=== PATIENT | female | born 1970 | race Caucasian/White ===

== ENCOUNTER 2018-07-31 05:04 | Day surgery (SDC) | payer BC ==
[2018-07-30 08:39] VITALS: BMI 34.9
--- NOTE | 2018-07-31 10:12 | HP ---
History & Physical Update - History History: No Change - Physical Physical: No Change - Assessment Assessment: No Change - Plan Plan: No Change Currently as noted:: 47yo female with Menorrhagia, obesity admitted for D&C and endom ablation
[2018-07-31] MEDS ORDERED: LIDOCAINE HCL/PF 2% SDV 5ML VIAL ONE (10:33)
[2018-07-31] MEDS ORDERED: PROPOFOL 20 ML ONE ×2 (10:34)
[2018-07-31] MEDS ORDERED: MIDAZOLAM HCL 2 MG/2 ML SINGLE DOSE VIAL ONE (10:34)
[2018-07-31] MEDS ORDERED: ceFAZolin SODIUM 1 GM VIAL IVPB ONE (10:58)
[2018-07-31] MEDS ORDERED: KETOROLAC TROMETHAMINE 30 MG/1 ML VIAL ONE (11:10)
[2018-07-31] MEDS ORDERED: DEXAMETHASONE SOD PHOSPHATE 4 MG/1 ML VIAL ONE (11:10)
[2018-07-31] MEDS ORDERED: ceFAZolin SODIUM 1 GM VIAL ONE ×2 (11:11)
[2018-07-31] MEDS ORDERED: ONDANSETRON 4 MG/2 ML VIAL IVPUSH PRN (11:40)
[2018-07-31] MEDS ORDERED: oxyCODONE HCL 5 MG TABLET PO PRN (11:40)
[2018-07-31] MEDS ORDERED: PROMETHAZINE HCL 25 MG/1 ML VIAL IVPB PRN (11:40)
--- NOTE | 2018-07-31 11:42 | OP ---
Operative Note - Note: Operative Date: 07/31/18 Pre-Operative Diagnosis: Menorrhagia, obesity Operation: Hysteroscopy, D&C, endometrial ablation Findings: Slightly enlarged uterine cavity, sounded to 8cm. No lesions Post-Operative Diagnosis: Same as Pre-op Surgeon: Nish Boyd Anesthesiologist/PATTERNMAKER ALL AROUND: Blayne Merida Anesthesia: General Specimens Removed: Endometrial curettings Estimated Blood Loss (mls): 10 Blood Volume Replaced (mls): 0 Fluid Volume Replaced (mls): 1,000 Operative Report Dictated: Yes
--- NOTE | 2018-07-31 11:45 | DS ---
Physical Exam-MEDIA SERVICES COORDINATOR Vital Signs: Vital Signs Temperature 97.9 F 07/31/18 09:13 Pulse Rate 82 07/31/18 09:13 Respiratory Rate 18 07/31/18 09:13 Blood Pressure 110/86 07/31/18 09:13 O2 Sat by Pulse Oximetry (%) 99 07/31/18 09:12 Constitutional: Yes: Well Nourished, No Distress, Calm Eyes: Yes: WNL, Conjunctiva Clear HENT: Yes: WNL, Atraumatic, Normocephalic Neck: Yes: WNL, Supple, Trachea Midline Cardiovascular: Yes: WNL, Regular Rate and Rhythm Respiratory: Yes: WNL, Regular, CTA Bilaterally Gastrointestinal: Yes: Normal Bowel Sounds, Soft, Abdomen, Obese ...Rectal Exam: Yes: Deferred Renal/: Yes: WNL Pelvis: Yes: WNL External Genitalia: Yes: Normal Internal Exam Deferred: Yes Vaginal Exam: Yes: Bleeding (mild) Musculoskeletal: Yes: WNL Extremities: Yes: WNL Edema: No Integumentary: Yes: WNL Neurological: Yes: WNL, Alert, Oriented ...Motor Strength: WNL Psychiatric: Yes: WNL, Alert, Oriented Discharge Summary Reason For Visit: EXCESSIVE AND FREQUENT MENSTRUATION WITH IRREGULAR Menorrhagia, obesity Procedures: Principal: Hysteroscopy w/endometrial ablation Other Procedures: D&C Hospital Course: Normal recovery Condition: Good - Instructions Diet, Activity, Other Instructions: Dr. Nish Boyd Leather Belt Loop Cutter discharge instructions Physical activity Resume your normal everyday activity as tolerated no heavy lifting or exercise until seen by your surgeon. You may walk unlimited steffen of and climb stairs. You may resume driving the car when you feel safe and comfortable behind the wheel. No sexual activity as instructed by Dr. Boyd. Wound care If you have a bandage, leave it on, and keep dry for 48-72 hours. After that time discard the outer bandage. If they are tapes on the skin under the out of bandage leave them in place. They will peel off in the next 7 to 10 days. Do Not Peel them off. You may shower the day after surgery. If there are tapes present on the skin, you may shower over them. Diet There are no dietary restrictions. Eat healthy, high-fiber foods. Drink 6 to 8 glasses of liquid each day. This will assist in keeping your bowels are regular. Pain management You may take Tylenol or acetaminophen or Ibuprofen (for example, Motrin, Advil etc.) from my pain prescription medication is ordered should be taken as prescribed for moderate to severe pain. Call Dr. Boyd for any of the following: Severe pain not relieved by medication Fever of 101 or higher Excessive bleeding or drainage on dressing Inability to urinate Call the office at [phone] for an appointment in seven days. Referrals: Nish Boyd MD [Staff Physician] - Disposition: HOME - Home Medications Comprehensive Discharge Medication List: Ambulatory Orders Cetirizine HCl [Zyrtec -] 10 mg PO DAILY 07/30/18 Naproxen Sodium [Aleve] 220 mg PO PRN 07/30/18
[2018-07-31] MEDS ORDERED: ONDANSETRON 4 MG/2 ML VIAL ONE (11:56)
[2018-07-31] MEDS ORDERED: ONDANSETRON 4 MG/2 ML VIAL IVPUSH ONE (12:00)
[2018-07-31 12:10] VITALS: TEMP 98.7
--- NOTE | 2018-07-31 12:12 | OP ---
DATE OF OPERATION: 07/31/2018 PREOPERATIVE DIAGNOSES: Menorrhagia, obesity. PROCEDURE: Hysteroscopy, dilatation and curettage, and endometrial ablation. POSTOPERATIVE DIAGNOSES: Menorrhagia, obesity. SURGEON: Nish Boyd MD ANESTHESIOLOGIST: Blayne Merida MD ANESTHESIA: General. COMPLICATIONS: None. PATHOLOGY: Endometrial curettings. INTRAVENOUS FLUIDS: 1000 mL. URINE OUTPUT: Not measured. ESTIMATED BLOOD LOSS: 10 mL. FINDINGS: Examination under anesthesia revealed an anteverted uterus, mobile within the pelvis with no pelvic or adnexal masses. The uterine cavity was sounded to 8 cm. Hysteroscopy revealed a mildly enlarged endometrial cavity without lesions. Endometrial ablation was performed under direct visualization Genesys HTA hysteroscope with good results and no complications. PROCEDURE: The patient was met preoperatively. Risks, benefits, and alternatives of surgery were discussed at length. The consent form was reviewed, and the patient asked appropriate questions. The consent form was signed. The patient was then brought to the OR with the IV running. She was placed on the surgical table in the supine position. General anesthesia was achieved without difficulty. The timeout procedure was conducted as per standard protocol. The patient was then positioned in a dorsal lithotomy position using adjustable Gonzalez stirrups. She was examined under anesthesia with the findings as described above. The patient was then prepped and draped in the usual sterile fashion. A weighted speculum was introduced inside the vagina. The anterior cervix was grasped with a single-toothed tenaculum. The cervical os was gently dilated to accommodate size 23-Fields dilator. A hysteroscope was then introduced into the uterine cavity with the findings as described above. The hysteroscope was then removed, and the uterine curettage was performed. The tissue was sent to Pathology for examination. The Genesys HTA hysteroscope was then placed into the uterine cavity. Endometrial ablation was performed using the HTA Genesys with no complications. The patient tolerated procedure well. Once the procedure was completed, all of the instruments were removed from the patient. Good hemostasis was noted. The patient was returned to supine position and transferred to recovery room in stable condition and awake. Santa [id number]
[2018-07-31] MEDS ORDERED: oxyCODONE HCL 5 MG TABLET ONE (13:01)
[2018-07-31 14:03] VITALS: BP 154/86; PULSE 74
--- NOTE | 2018-08-03 17:13 | PATH ---
Surgical Pathology Report Patient Name: KELLY ANDREW [facility]. Rec. #: [id number] /Age/Gender: 1970 (Age: 47) / F Account: [id number] Location: [facility] SURGICAL Taken: 07/31/2018 Received: 07/31/2018 Reported: 08/03/2018 Physicians: Nish Boyd M.D. Specimen(s) Received ENDOMETRIAL CURETTINGS Clinical History Excessive infrequent menstruation Final Diagnosis ENDOMETRIAL CURETTINGS, DILATION AND CURETTAGE: FRAGMENTS OF SECRETORY ENDOMETRIUM AND BENIGN ENDOCERVICAL TISSUE. Electronically Signed Tanja Joseph M.D. Gross Description Received in formalin labeled "endometrial curettings," is a 2.3 x 2.2 x 0.3 cm aggregate of red-brown soft tissue fragments. The formalin is filtered and the specimen is entirely submitted in one cassette. /07/31/2018 saudi07/31/2018
== END 2018-07-31 14:06 | disposition home or self-care (01) ==
LOC: JASU-SURG 05:04
PROVIDERS: ATTEND Obstetrics & Gynecology
PROC: 0U5B8ZZ Destruction of Endometrium, Via Natural or Artificial Opening Endoscopic (ICD-10-PCS; principal; 2018-07-31 10:30)
PROC: 0UDB7ZX Extraction of Endometrium, Via Natural or Artificial Opening, Diagnostic (ICD-10-PCS; 2018-07-31 10:30)
DX: N92.0 Excessive and frequent menstruation with regular cycle (principal); E66.9 Obesity, unspecified
CPT/HCPCS: 88305-TC; 94760